=== PATIENT | male | born 1980 | race Caucasian/White ===

== ENCOUNTER 2019-11-07 10:55 | Outpatient (CLI) | payer OTHER ==
--- NOTE | 2019-11-07 12:29 | SLEEP CARE CONSULTATION ---
Information from patient questionnaire entered by Anna Perez. I have reviewed and concur with the information entered by Anna Perez. This document represents the service I personally performed and the decisions made by me, Chung Wagner MD, [facility]. History of Present Illness Initial [place] Sleepiness Scale score: 16 Additional HPI information: To minimize the risk of exposure, we have the option to conduct your visit with me over the phone. I will be able to discuss your health and offer medical advice. If you agree, we will bill your insurance. Do you agree to this telephone service? YES. HPI: Mr. Lomeli was called for follow up of the sleep study he had on 10/04/2019. The polysomnography showed that the patient had normal sleep efficiency. Except for mild sleep fragmentation, the sleep architecture was normal as well. Respiratory monitoring showed moderate obstructive sleep apnea- hypopnea (AHI = 16.0) associated with frequent arousals, oxyhemoglobin desaturation and mild hypoxia (oksana oxygen saturation of 84%). The respiratory events occurred almost exclusively during supine sleep (supine AHI = 46.9; non- supine = 1.03). Snore was moderate to loud in intensity. There was no significant periodic leg movement of sleep. Cardiac rhythm was normal sinus rhythm without significant arrhythmia. No abnormal behavior (parasomnia) observed during the night. The patient was informed of these findings. I explained to him the pathophysiology behind obstructive sleep apnea. We then spent quite a bit of time discussing different treatment options. For mild obstructive sleep apnea, surgery and oral appliance are alternatives to nasal CPAP therapy but in moderate or severe cases, nasal CPAP is the most effective and reliable treatment. Weight loss in an obese individual is strongly recommended. After some discussion, he opted to go with the nasal CPAP therapy. I explained to him how CPAP machine works and what to expect when using the machine. He is encouraged to use CPAP every night especially in the first 2 to 3 nights in order to get used to it. He should call his CPAP supplier or me to discuss any mechanical problem that may occur. If he snores or feels like he is not getting enough air from the machine, he should notify me and I will increase the pressure. Allergies and Home Medications Drug allergies reviewed: Yes Home medication list reviewed: Yes Review of Systems Review of systems same as previous: Yes Impression and Plan IMPRESSION: 1. Obstructive Sleep Apnea-Hypopnea Syndrome, moderate, associated with mild hypoxemia and sleep fragmentation. Obviously this is the cause of the patients symptoms of unrefreshed sleep, and excessive daytime sleepiness. As mentioned above, the patient will be scheduled to return for an overnight CPAP titration study. PLAN: 1. Schedule a manual CPAP/BiPAP titration study. 2. Attempt to lose weight and avoid alcohol consumption near bedtime. 3. The patient is again cautioned about driving until his sleepiness completely resolves on the CPAP therapy. 4. Return in six weeks for follow up. I will assess his response and compliance at that time. I spent 100% of this visit face to face with the patient with greater than 50% of this was spent time counseling the patient and coordination of care.
== END 2019-11-07 10:56 | disposition home or self-care (01) ==
LOC: SC 10:55
PROVIDERS: ATTEND Internal Medicine Pulmonary Disease
DX: G47.33 Obstructive sleep apnea (adult) (pediatric) (principal)

== ENCOUNTER 2020-01-19 19:52 | Outpatient (CLI) | payer OTHER | END 2020-01-19 19:53 | disposition home or self-care (01) | LOC: SC 19:52 | PROVIDERS: ATTEND Internal Medicine Pulmonary Disease | DX: G47.33 Obstructive sleep apnea (adult) (pediatric) (principal) | CPT/HCPCS: 95811 ==

== ENCOUNTER 2020-02-09 15:41 | Outpatient (CLI) | payer OTHER ==
[2020-02-09 16:50] VITALS: BP 124/90
--- NOTE | 2020-02-09 16:50 | SLEEP CARE CONSULTATION ---
Information from patient questionnaire entered by Anna Perez. I have reviewed and concur with the information entered by Anna Perez. This document represents the service I personally performed and the decisions made by me, Suzette Patino, RN, MSN, [employer]. History of Present Illness Service Date and Time: 02/09/2020 1541 Initial [place] Sleepiness Scale score: 16 (in 2019) Current [place] Sleepiness Scale score: 15 Additional HPI information: JAMILAH ELLIS returns for follow up and results of the recently performed manual titration study. I explained the pathophysiology behind obstructive sleep apnea. We then spent quite a bit of time discussing different treatment options. After some discussion, the patient opted to go with the nasal CPAP therapy. I explained how CPAP machine works with sample devices [employer]lighting Dreamstation and [id number] and what to expect when using the machine. Using CPAP every night in order to get used to it was emphasized. Patient advised to put CPAP mask on before getting into bed so as not to fall asleep without CPAP. To assist acclimation to CPAP use, it could also be used for a short time during day while reading or watching TV. The patient was instructed to call the CPAP supplier to discuss any mechanical problem that may occur. If the mask given is uncomfortable or is difficult to keep on through the night even with adjustment, contact the CPAP supplier as many will replace with another mask style if notified before 30 days. If snoring or perceives is not getting enough air or too much air from the machine, notify this office. [facility] patient education PAP tips reviewed and given to patient. Patient counseled not drink alcohol less than 4 hours before bedtime as it can increase snoring and apnea. Patient does not drink alcohol. Patient was cauti oned about risks of drowsy driving until sleepiness symptoms resolve. Patient denies drowsy driving. Sleep Study - Results Polysomnography/Home Sleep Study results: The quality of the study is good. CPAP was initiated at 5 cmH2O and titrated up to CPAP at 9 cmH2O. CPAP at 9 cmH2O appeared to be optimal (AHI of 0.6 per hour on the pressure). There was supine REM sleep on the pressure. Oxygen saturation was normal throughout the night. Lower CPAP settings allowed a few hypopneas. The patient appeared to have tolerated positive airway pressure therapy very well. The patients sleep efficiency was normal. The sleep architecture was also normal. There was no significant periodic leg movement of sleep. Cardiac rhythm was normal sinus rhythm without significant arrhythmia. No abnormal behavior (parasomnia) observed during the night. Allergies and Home Medications Known drug allergies: Yes (amoxicillin) Home medication list reviewed: No (none) Review of Systems Review of systems same as previous: Yes Physical Exam Blood Pressure: 124/90 Cuff size: long Heart Rate: 73 O2 Saturation: 97 Height: 5 ft 11 in Weight: 247 lb 6.4 oz Body Mass Index: 34.4 BMI Classification: Obese Impression and Plan 1. Obstructive Sleep Apnea-Hypopnea Syndrome, mild, with lowest oxygen saturation of adequately controlled with 9cmH20. Obviously this is the cause of the patients symptoms of unrefreshed sleep, and excessive daytime sleepiness. . A copy of compliance guidelines will be given for reference at check out. Because the apnea is more severe supine, I instructed to avoid sleeping supine using pillow positioning until able to start CPAP use. 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 At follow up I will discuss deployment prescription and CPAP battery need to come from his PCP. * Nasal auto CPAP therapy, pressure at 9 cm H2O. * Attempt to lose weight. * Avoid alcohol consumption near bedtime. * Avoid supine sleep until using CPAP. * The patient is again cautioned about driving until sleepiness completely resolves. * Return one month after CPAP obtained. I will assess response to therapy and compliance at that time. Visit Type: In Office Time Spent with Patient (minutes): 30 Provider Statement: I spent 100% of the Face to Face Visit with the patient with greater than 50% spent counseling the patient and coordination of care.
== END 2020-02-09 15:42 | disposition home or self-care (01) ==
LOC: SC 15:41
PROVIDERS: ATTEND Nurse Practitioner Family
DX: G47.33 Obstructive sleep apnea (adult) (pediatric) (principal); E66.9 Obesity, unspecified; Z68.34 Body mass index [BMI] 34.0-34.9, adult
CPT/HCPCS: 99212; 99214

== ENCOUNTER 2020-03-28 11:49 | Outpatient (CLI) | payer OTHER ==
--- NOTE | 2020-03-28 12:29 | SLEEP CARE CONSULTATION ---
Information from patient questionnaire entered by Anna Perez. I have reviewed and concur with the information entered by Anna Perez. This document represents the service I personally performed and the decisions made by me, Alisia Carreno ARNP. History of Present Illness Service Date and Time: 03/28/2020 1149 Previous diagnosis: Moderate, Obstructive Sleep Apnea-Hypopnea Syndrome AHI: 16.0 (in 2019) Reason for follow up: first compliance Equipment type: CPAP Equipment obtained from: Other ([employer] [facility]--getting supplies as needed) Mask style: Nasal (Wisp) Mask brand: Respironics Backup mask available: Yes (old mask from study) Last cushion change: 1 week Prior sleep studies: Yes Year and Where: 2019- [facility] Sleep Type of Sleep Study: Polysomnography HPI additional information: JAMILAH ELLIS was diagnosed to have moderate, AHI 16.0, obstructive sleep apnea-hypopnea syndrome and returned today for CPAPBIPAP therapy first compliance follow-up. CPAP Compliance Data - Data Reviewed with Patient Average duration of nightly device use: 6.45 Compliance rate %: 96.7 Current pressure setting (cmH2O): 9 Humidity settin Heated hose settin Average residual AHI: 2.3 Central apnea: 1.1 Obstructive apnea: 0.3 Average large leak: 2 sec Subjective Patient concerns: reports: mask discomfort (Get warm and sweaty under the nasal mask), condensation in mask/hose (just adjust humidity and heated hose 4-5 days ago, seems better), dry mouth, nose, throat (dry mouth 1-2 times). denies: aerophagia, air blowing in eyes, mask leak noise, nasal congestion, epistaxis, other Observed to snore while using device: No Current pressure setting perceived as: comfortable On therapy, patient: reports: drowsiness while driving, other (still wakes up kind of tired in mornings). denies: sleeping better, awakening more refreshed, being more awake and alert during the day, more rested overall Initial [place] Sleepiness Scale score: 16 (in 2019) Current [place] Sleepiness Scale score: 18 Allergies and Home Medications Drug allergies reviewed: Yes (NKDA) Home medication list reviewed: Yes (no changes) Review of Systems Review of systems same as previous: Yes (no changes) Physical Exam Heart Rate: 70 O2 Saturation: 97 Height: 5 ft 11 in Weight: 248 lb 12.8 oz Body Mass Index: 34.7 BMI Classification: Obese Impression and Plan 1. Obstructive Sleep Apnea-Hypopnea Syndrome, moderate, with good treatment compliance and good apnea control. On CPAP therapy, there is improved sleep quality and feels more rested overall. He still has some residual tiredness during the day that he would like to improve. He will give it some more time and see if it improves with continued use of the CPAP therapy. He has had issues with sweating under the Wisp mask that makes him uncomfortable. I will order a mask refitting as he may do better with a nasal cushion type mask over the Wisp and he agreed with plan. He has been having issues with condensation in the mask that has improved since he adjusted the humidity to 2 and the heated hose to 1, they were both at 4 prior to adjustment. He was encouraged to adjust these settings as needed to reduce/eliminate condensation. 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 We discussed need to have his pressure adjusted if the pressure feels too high or low with weight loss and can discuss this further at his next followup. Patient's apnea severity and rationale for treatment to reduce apnea, improve sleep quality and reduce cardiovascular and cerebrovascular events was reviewed. I also reviewed the benefit of consistent device use of CPAP for overall health. Continue nasal CPAP pressure at 9 cm H2O. Notify me if snoring with the mask or feeling that the pressure is too much or too little. Attempt to lose weight. Mask refitting. Return for follow-up in 1 month, or sooner if concerns arise. Visit Type: In Office Time Spent with Patient (minutes): 21 Provider Statement: I spent 100% of the Face to Face Visit with the patient with greater than 50% spent counseling the patient and coordination of care.
== END 2020-03-28 11:50 | disposition home or self-care (01) ==
LOC: SC 11:49
PROVIDERS: ATTEND Nurse Practitioner Family
DX: G47.33 Obstructive sleep apnea (adult) (pediatric) (principal); E66.9 Obesity, unspecified; Z68.34 Body mass index [BMI] 34.0-34.9, adult
CPT/HCPCS: 99212; 99213

== ENCOUNTER → 2020-04-19 | Outpatient (CLI) | payer OTHER ==
[2020-04-26 12:33] LABS: MUDS CUTOFF CONCENTRATIONS CUTOFF CONC BELOW:
[2020-04-26 12:58] LABS: AMPHETAMINE SCREEN,URINE NEGATIVE (NEGATIVE); BENZODIAZEPINES SCREEN, URINE NEGATIVE (NEGATIVE); COCAINE SCREEN URINE NEGATIVE (NEGATIVE); METHADONE SCREEN, URINE NEGATIVE (NEGATIVE); METHAMPHETAMINES SCREEN, URINE NEGATIVE (NEGATIVE); OPIATE SCREEN, URINE NEGATIVE (NEGATIVE); OXYCODONE SCREEN, URINE NEGATIVE (NEGATIVE); PROPOXYPHENE SCREEN, URINE NEGATIVE (NEGATIVE); TRICYCLIC ANTIDEPRESSANT,URINE NEGATIVE (NEGATIVE)
== END ==
LOC: LAB.R 08:00
PROVIDERS: ATTEND Nurse Practitioner Family
DX: R41.82 Altered mental status, unspecified (principal)
CPT/HCPCS: 80306

== ENCOUNTER 2020-04-26 06:53 | Outpatient (CLI) | payer OTHER | END 2020-04-26 06:54 | disposition home or self-care (01) | LOC: SC 06:53 | PROVIDERS: ATTEND Nurse Practitioner Family | DX: G47.33 Obstructive sleep apnea (adult) (pediatric) (principal); G47.10 Hypersomnia, unspecified | CPT/HCPCS: 95805 ==

== ENCOUNTER 2020-05-01 09:00 | Outpatient (CLI) | payer OTHER ==
--- NOTE | 2020-05-01 09:37 | SLEEP CARE CONSULTATION ---
Information from patient questionnaire entered by Anna Perez. I have reviewed and concur with the information entered by Anna Perez. This document represents the service I personally performed and the decisions made by me, Chung Wagner MD, [facility]. History of Present Illness Service Date and Time: 05/01/2020 0900 Previous diagnosis: Moderate, Obstructive Sleep Apnea-Hypopnea Syndrome AHI: 16.0 (in 2019) Reason for follow up: one month (with MWT results) Equipment type: CPAP Equipment obtained from: Other ([facility]) Mask style: Nasal Mask brand: Respironics [facility] additional information: HPI: Mr. Lomeli was returns today to follow up on the nasal CPAP therapy and his recent maintenance of wakefulness test (MWT) result. He was diagnosed to have moderate obstructive sleep apnea-hypopnea syndrome. The patient wears a nasal mask. He reports using the device nightly and all through the night. The compliance report shows usage in 30 nights out of the past 30 nights, averaging 6.75 hours a night. The > 4 hour compliance rate for the past 30 days is 97%. He says that several nights were short because he had to stand watch. He complained of no particular problem with the device such as soreness on the face, dry nose, epistaxis, nasal congestion or headache. He thinks that the pressure of 9 cmH2O is comfortable. On the CPAP therapy he notices improvement in his sleep quality, and that he wakes up feeling fresher in the morning and more awake/alert during the day. The average residual AHI is 2.4 ; and average time in large leak per day is 18 seconds. The maintenance of wakefulness test (MWT) showed that he fell asleep during both sessions with mean sleep latency of 20 minutes. Sleep Study - Results Type of Sleep Study: Polysomnography (MWT) Prior [facility]: Yes [facility] CPAP Compliance Data - Data Reviewed with Patient Average duration of nightly device use: 6.75 Compliance rate %: 96.7 Current pressure setting (cmH2O): 9 Humidity settin Heated hose settin Average residual AHI: 2.4 Average large leak: 18 sec Subjective Current pressure setting perceived as: comfortable Initial [place] Sleepiness Scale score: 16 (in 2020) Current [place] Sleepiness Scale score: 18 Allergies and Home Medications Drug allergies reviewed: Yes Home medication list reviewed: Yes Review of Systems Review of systems same as previous: Yes Physical Exam Vital signs obtained and entered by: To minimize the risk of COVID-19 exposure, detailed exam was not performed. Height: 5 ft 11 in Weight: 230 lb Body Mass Index: 32.1 BMI Classification: Obese Impression and Plan IMPRESSION: 1. Obstructive Sleep Apnea-Hypopnea Syndrome, moderate, with persistent daytime sleepiness. This could be due to insufficient sleep6.7 hours as recorded by the CPAP. The treatment is effective. He has excellent compliance and significant clinical improvement. The current pressure appears comfortable. His mask fits well. Overall, he is very satisfied with treatment and plans to continue with it long-term. He was advised to at least average 7.5 hours of sleep before we can repeat the maintenance of wakefulness test (MWT). The patient will try. He anticipate a deployment in about 5 weeks. PLAN: 1. Continue with autoCPAP set at 9 cmH2O. 2. Try to get at least 7.5 hours of sleep a night. 3. 4. Return for a follow up in 3 weeks to recheck usage time and possible order another maintenance of wakefulness test (MWT). Visit Type: In Office Time Spent with Patient (minutes): 15 Provider Statement: I spent 100% of the Face to Face Visit with the patient with greater than 50% spent counseling the patient and coordination of care.
== END 2020-05-01 09:01 | disposition home or self-care (01) ==
LOC: SC 09:00
PROVIDERS: ATTEND Internal Medicine Pulmonary Disease
DX: G47.33 Obstructive sleep apnea (adult) (pediatric) (principal); E66.9 Obesity, unspecified; Z68.32 Body mass index [BMI] 32.0-32.9, adult
CPT/HCPCS: 99212; 99213

== ENCOUNTER 2020-05-22 14:10 | Outpatient (CLI) | payer OTHER ==
--- NOTE | 2020-05-22 15:09 | SLEEP CARE CONSULTATION ---
Information from patient questionnaire entered by Anna Perez. I have reviewed and concur with the information entered by Anna Perez. This document represents the service I personally performed and the decisions made by me, Chung Wagner MD, [facility]. History of Present Illness Service Date and Time: 05/22/2020 1410 Previous diagnosis: Moderate, Obstructive Sleep Apnea-Hypopnea Syndrome AHI: 16.0 (in 2019) Reason for follow up: other (3 week ) Equipment type: CPAP Equipment obtained from: Other ([facility]) Mask style: Nasal [facility]: Yes [facility] HPI additional information: HPI: Mr. Lomeli was returns today to follow up on the nasal CPAP therapy. He was diagnosed to have moderate obstructive sleep apnea-hypopnea syndrome. He failed a maintenance of wakefulness test (MWT) on CPAP therapy. Based on the compliance reports average daily usage of 6.7 hours a night, it was felt that insufficient sleep was a factor in his excessive daytime sleepiness. The patient wears a nasal mask. He reports using the device nightly and all through the night. The compliance report shows usage in 14 nights out of the past 14 nights, averaging 7.3 (was 6.75) hours a night. The > 4 hour compliance rate for the past 14 days is 100%. No particular problem with the device such as soreness on the face, dry nose, epistaxis, nasal congestion or headache. He thinks that the pressure of 9 cmH2O is comfortable. On the CPAP therapy he notices some improvement in his sleep quality, and that he wakes up feeling fresher in the morning and more awake/alert during the day. [place] Sleepiness Scale score is 16. The average residual AHI is 2.2; and average time in large leak per day is 0 seconds. Sleep Study - Results Prior sleep studies: Yes [facility] Compliance Data - Data Reviewed with Patient Average duration of nightly device use: 7.45 Compliance rate %: 100 Current pressure setting (cmH2O): 9 Humidity settin Heated hose settin Average residual AHI: 2.3 Average large leak: 0 Subjective Current pressure setting perceived as: comfortable Initial [place] Sleepiness Scale score: 16 (in 2019) Current [place] Sleepiness Scale score: 16 Allergies and Home Medications Drug allergies reviewed: Yes Home medication list reviewed: Yes Physical Exam Vital signs obtained and entered by: To minimize the risk of COVID-19 exposure, detailed exam was not performed. Height: 5 ft 11 in Weight: 230 lb Body Mass Index: 32.1 BMI Classification: Obese Impression and Plan IMPRESSION: 1. Obstructive Sleep Apnea-Hypopnea Syndrome, moderate, with persistent daytime sleepiness. The excessive daytime sleepiness seems to be persisting despite adequate night sleep. He is now removed deployment. I will have him use the CPAP more than 7 hours a night and return in a month. Another maintenance of wakefulness test (MWT) will be ordered then. If he fails again, a multiple sleep latency test (MSLT) will be performed to see if there are other conditions contributing to his excessive daytime sleepiness. PLAN: 1. Continue with autoCPAP set at 9 cmH2O. 2. Try to get at least 7.5 hours of sleep a night. 3. Return for a follow up in 1 month to recheck usage time and possible order another maintenance of wakefulness test (MWT). Visit Type: In Office Time Spent with Patient (minutes): 15 Provider Statement: I spent 100% of the Face to Face Visit with the patient with greater than 50% spent counseling the patient and coordination of care.
== END 2020-05-22 14:11 | disposition home or self-care (01) ==
LOC: SC 14:10
PROVIDERS: ATTEND Internal Medicine Pulmonary Disease
DX: G47.33 Obstructive sleep apnea (adult) (pediatric) (principal); G47.10 Hypersomnia, unspecified; E66.9 Obesity, unspecified; Z68.32 Body mass index [BMI] 32.0-32.9, adult
CPT/HCPCS: 99212; 99213

== ENCOUNTER 2020-06-26 10:43 | Outpatient (CLI) | payer OTHER ==
--- NOTE | 2020-06-26 10:26 | SLEEP CARE CONSULTATION ---
Information from patient questionnaire entered by Anna Perez. I have reviewed and concur with the information entered by Anna Perez. This document represents the service I personally performed and the decisions made by me, Chung Wagner MD, [facility]. History of Present Illness Service Date and Time: 06/26/2020 1000 Previous diagnosis: Moderate, Obstructive Sleep Apnea-Hypopnea Syndrome AHI: 16.0 (in 2019) Reason for follow up: one month Equipment type: CPAP Equipment obtained from: Other ([facility]) Mask style: Nasal Prior sleep studies: Yes Year and Where: 2019- [facility] Sleep HPI additional information: HPI: Mr. Lomeli was returns today to follow up on the nasal CPAP therapy. He was diagnosed to have moderate obstructive sleep apnea-hypopnea syndrome. He failed a maintenance of wakefulness test (MWT) on CPAP therapy. Based on the compliance reports average daily usage of 6.7 hours a night, it was felt that insufficient sleep was a factor in his excessive daytime sleepiness. He was instructed to get at least 7 hours a night on the average. The patient wears a nasal mask. He reports using the device nightly and all through the night. The compliance report now shows usage in 30 nights out of the past 30 nights, averaging 7.3 (was 6.75) hours a night. The > 4 hour compliance rate for the past 30 days is 100%. No particular problem with the device such as soreness on the face, dry nose, epistaxis, nasal congestion or headache. He thinks that the pressure of 9 cmH2O is comfortable. On the CPAP therapy he notices some improvement in his sleep quality, and that he wakes up feeling fresher in the morning and more awake/alert during the day. He is still overall sleepy during the day. The average residual AHI is 2.1; and average time in large leak per day is 0 seconds. He says he snores through the CPAP. CPAP Compliance Data - Data Reviewed with Patient Average duration of nightly device use: 7.25 Compliance rate %: 100 Current pressure setting (cmH2O): 9 Humidity settin Heated hose settin Average residual AHI: 2.1 Average large leak: 0 Subjective Initial [place] Sleepiness Scale score: 16 (in 2019) Allergies and Home Medications Drug allergies reviewed: Yes Home medication list reviewed: Yes Review of Systems Review of systems same as previous: Yes Physical Exam Height: 5 ft 11 in Impression and Plan IMPRESSION: 1. Obstructive Sleep Apnea-Hypopnea Syndrome, moderate, with persistent daytime sleepiness. The excessive daytime sleepiness seems to be persisting despite adequate night sleep. He is now removed deployment. I will have him use the CPAP more than 7 hours a night and return in a month. Another maintenance of wakefulness test (MWT) will be ordered then. If he fails again, a multiple slee p latency test (MSLT) will be performed to see if there are other conditions contributing to his excessive daytime sleepiness. Because he still snores through the CPAP, I will raise the pressure a little. PLAN: 1. Increase CPAP to 10 cmH2O and lengthen the ramp time to 20 minutes. 2. Try to get at least 7.5 hours of sleep a night. 3. Schedule a repeat maintenance of wakefulness test (MWT). Visit Type: Telehealth Video Video Type: Doximity Patient Location: Home Location of Provider: Home Patient agrees and consents to this telehealth visit type: Yes Patient agrees to have their insurance billed: Yes Time Spent with Patient (minutes): 15 Provider Statement: I spent 100% of the Telehealth Video Call with the patient with greater than 50% spent counseling the patient and coordination of care.
== END 2020-06-26 10:44 | disposition home or self-care (01) ==
LOC: SC 10:43
PROVIDERS: ATTEND Internal Medicine Pulmonary Disease
DX: G47.33 Obstructive sleep apnea (adult) (pediatric) (principal)

== ENCOUNTER 2020-07-12 06:58 | Outpatient (CLI) | payer OTHER | END 2020-07-12 06:59 | disposition home or self-care (01) | LOC: SC 06:58 | PROVIDERS: ATTEND Internal Medicine Pulmonary Disease | DX: G47.33 Obstructive sleep apnea (adult) (pediatric) (principal) | CPT/HCPCS: 95805 ==

== ENCOUNTER 2020-07-12 08:00 | Outpatient (CLI) | payer OTHER ==
[2020-07-12 14:35] LABS: MUDS CUTOFF CONCENTRATIONS CUTOFF CONC BELOW:
[2020-07-12 15:14] LABS: AMPHETAMINE SCREEN,URINE NEGATIVE (NEGATIVE); BENZODIAZEPINES SCREEN, URINE NEGATIVE (NEGATIVE); COCAINE SCREEN URINE NEGATIVE (NEGATIVE); METHADONE SCREEN, URINE NEGATIVE (NEGATIVE); METHAMPHETAMINES SCREEN, URINE NEGATIVE (NEGATIVE); OPIATE SCREEN, URINE NEGATIVE (NEGATIVE); OXYCODONE SCREEN, URINE NEGATIVE (NEGATIVE); PROPOXYPHENE SCREEN, URINE NEGATIVE (NEGATIVE); TRICYCLIC ANTIDEPRESSANT,URINE NEGATIVE (NEGATIVE)
== END 2020-07-12 23:59 | disposition home or self-care (01) ==
LOC: LAB.R 08:00
PROVIDERS: ATTEND Internal Medicine Pulmonary Disease
DX: R41.82 Altered mental status, unspecified (principal)
CPT/HCPCS: 80306

== ENCOUNTER 2020-07-23 12:44 | Outpatient (CLI) | payer OTHER ==
--- NOTE | 2020-07-23 13:49 | SLEEP CARE CONSULTATION ---
Information from patient questionnaire entered by Anna Perez. I have reviewed and concur with the information entered by Anna Perez. This document represents the service I personally performed and the decisions made by me, Chung Wagner MD, [facility]. History of Present Illness Service Date and Time: 07/23/2020 1244 Initial [place] Sleepiness Scale score: 16 (in 2020) Current [place] Sleepiness Scale score: 14 Additional HPI information: HPI: Mr. Lomeli was returns today to follow up on the maintenance of wakefulness test (MWT) he recently had. The test was normal. He did not fall asleep in any of the 4 sessions. The compliance data show usage in 30 out of the past 30 nights, averaging 7.2 hours a night. The residual AHI is 2.6 and average air leak is 0 L/minute. He continues to report feeling tired. Sleep Study - Results Type of Sleep Study: Polysomnography (MWT) Prior sleep studies: Yes Year and Where: 2019- [facility] Sleep Allergies and Home Medications Drug allergies reviewed: Yes Home medication list reviewed: Yes Review of Systems Review of systems same as previous: Yes Physical Exam Vital signs obtained and entered by: To minimize the risk of COVID-19 exposure, detailed exam was not performed. Height: 5 ft 11 in Weight: 230 lb Body Mass Index: 32.1 BMI Classification: Obese Impression and Plan IMPRESSION: 1. Obstructive Sleep Apnea-Hypopnea Syndrome, moderate, with persistent tiredness which probably has other etiologies. He is not objectively sleepy because the maintenance of wakefulness test (MWT) is negative. The current pressure setting appears effective and comfortable. No adjustment is necessary today. PLAN: 1. Leave CPAP at 10 cmH2O. 2. Try to get at least 7.5 hours of sleep a night. 3. Try to lose weight. 4. Follow up with a sleep physician in [place], [place] where he will be moving to in about 6 months. Visit Type: In Office Provider Statement: I spent 100% of the Face to Face Visit with the patient with greater than 50% spent counseling the patient and coordination of care.
== END 2020-07-23 12:45 | disposition home or self-care (01) ==
LOC: SC 12:44
PROVIDERS: ATTEND Internal Medicine Pulmonary Disease
DX: G47.33 Obstructive sleep apnea (adult) (pediatric) (principal); R53.83 Other fatigue
CPT/HCPCS: 99212; 99213